=== PATIENT | male | born 1990 | race African-American/Black ===

== ENCOUNTER 2021-02-18 03:14 | Emergency (ER) | payer MEDICAID ==
[~2021-02-18] VITALS: Ht 188 cm; Wt 95.3 kg
[2021-02-18 03:51] VITALS: BP 136/77
[2021-02-18] MEDS ORDERED: IBUP-1957 PO (03:56)
[2021-02-18] MEDS ORDERED: SULF1TAB48 PO (03:56)
[2021-02-18] MEDS ORDERED: CEPH500C2 PO (03:56)
--- NOTE | 2021-02-18 04:00 | NUR ---
Patient discharged to home in stable condition. Education provied and rx given to patient. Written and verbal after care instructions given. Patient verbalizes understanding of instruction.
== END 2021-02-18 04:00 | disposition home or self-care (01) ==
LOC: ER 03:14
DX: L02.811 Cutaneous abscess of head [any part, except face] (principal); L03.811 Cellulitis of head [any part, except face]

== ENCOUNTER 2022-08-30 02:34 | Emergency (ER) | payer MEDICAID ==
[~2022-08-30] VITALS: Ht 182.9 cm; Wt 86.2 kg
[~2022-08-30 02:34] MED LIST: CEPH500C2 PO; IBUP-1957 PO; SULF1TAB48 PO
[2022-08-30 02:40] VITALS: BP 139/70
[2022-08-30] MEDS ORDERED: ONDA4TAB5 PO (04:53)
[2022-08-30] MEDS ORDERED: ONDANSETRON 4 MG TAB.RAPDIS ONE (04:57)
[2022-08-30] MEDS ORDERED: ONDANSETRON 4 MG TAB.RAPDIS SL ONE (05:00)
--- NOTE | 2022-08-30 05:06 | NUR ---
Patient discharged to home in stable condition. Written and verbal after care instructions given. Patient verbalizes understanding of instruction. Pt ambulatory with a steady gait
== END 2022-08-30 05:07 | disposition home or self-care (01) ==
LOC: ER 02:44
DX: R11.2 Nausea with vomiting, unspecified (principal); F11.10 Opioid abuse, uncomplicated; F17.200 Nicotine dependence, unspecified, uncomplicated; Z60.2 Problems related to living alone; Z79.899 Other long term (current) drug therapy
CPT/HCPCS: 99283; Q0162